=== PATIENT | female | born 1980 | race Two or more races ===

== ENCOUNTER 2023-06-15 22:00 | Emergency (ER) | payer MEDICARE, OTHER ==
[~2023-06-15] VITALS: Ht 175.3 cm; Wt 83.6 kg
[2023-06-15 22:05] VITALS: BP 134/91; PULSE 111; RESP 18; O2SAT 97
== END 2023-06-16 03:35 | disposition left against medical advice (07) ==
LOC: ER 22:00
DX: M79.602 Pain in left arm (principal); Z53.21 Procedure and treatment not carried out due to patient leaving prior to being seen by health care provider; X58.XXXA Exposure to other specified factors, initial encounter; Y93.89 Activity, other specified; Y92.89 Other specified places as the place of occurrence of the external cause; Y99.8 Other external cause status